=== PATIENT | female | born 1985 | race Caucasian/White ===

== ENCOUNTER 2018-06-22 13:03 | Emergency (ER) | payer OTHER ==
--- NOTE | 2018-06-22 13:13 | EDPHY ---
H & P Stated Complaint: midsternal cp since th Time Seen by Provider: 06/22/18 13:13 HPI/ROS: CHIEF COMPLAINT: Chest pain HISTORY OF PRESENT ILLNESS: This is a healthy 33-year-old female who presents with 3 days of intermittent substernal chest pain. She woke 2 days ago with chest pain in the mid to high substernal area. She describes this as a pressure. She also had developed a subconjunctival hemorrhage in her right eye. She saw her eye doctor concerning the subconjunctival hemorrhage. The chest pain resolved without treatment. The following day, yesterday, she had some chest pain in the morning that went away as the day progressed. She thought that she was fine overall. However, today the chest pain has returned. She does not feel short of breath and it does not hurt to breathe. She has not had cough or fever. No chest trauma. She denies nausea or vomiting. She does report that she has had some left facial tingling or numbness. It involved the area around her left eye and is present at the time of my interview. She also has a feeling of tingling that extends into her left neck and arm. She noticed some aching in her right leg yesterday, none today, and she does not describe this as numbness. She has had no weakness. She denies headache. Father had a heart attack at age 67. REVIEW OF SYSTEMS: A ten system review of systems was performed and is negative with the exception of the items mentioned in the HPI. She has intermittent low back pain, not a problem currently. She did experience some low posterior neck pain about a month ago and underwent an MRI of her neck. She was told at that time that she did not have any disc disease and that"something was aggravating her nervous System". She does not believe that this was a description of an MRI finding but the MRI was done outside of our system. No report available to me. Past medical history: Negative with the exception of a remote diagnosis of ulcer disease. No endoscopy was ever performed. She states that this was related to medication she was taking. She has not had any midepigastric or abdominal pain recently. Past surgical history: Negative. Family history: Father with MS at age 67. Grandfather with pancreatic cancer. Mother with a brain stem tumor for which she underwent unknown treatments. The tumor is reportedly gone. 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 She is with a 2-year- old daughter. No tobacco use. General Appearance: Alert. Vital signs reviewed and normal. Eyes: Pupils equal and round, no conjunctival injection, no discharge. Anicteric. ENT, Mouth: Mucous membranes are moist, no oropharyngeal erythema or edema. Neck: No lymphadenopathy, supple. Respiratory: Lungs are clear to auscultation; no wheezes, rales, or rhonchi. Cardiovascular: Regular rate and rhythm; no murmur, rub, or gallop. Gastrointestinal: Abdomen is soft and nontender, no masses or organomegaly, bowel sounds normal. Skin: Warm and dry, no rashes on exposed skin, normal color. Back: Nontender to palpation over the thoracolumbar spine. No CVAT. Extremities: No lower extremity edema, no calf tenderness or swelling. Neurological: Alert and oriented. Moving all four extremities easily and equally. Cranial nerves 2-12 were examined and are intact with the exception of decreased light touch over the left forehead. Visual acuity not tested. Strength 5/5 with testing of all major motor groups in the upper and lower extremities. Sensation is mildly decreased to light touch over the left upper arm in all dermatomes with normal sensation distal to the wrist. Deep tendon reflexes are 2+ in the biceps, triceps, and knees. No clonus. Psychiatric: Normal affect. - Personal History LMP (Females 10-55): 8-14 Days Ago Current Tetanus Diphtheria and Acellular Pertussis (TDAP): Yes - Medical/Surgical History Hx Asthma: No Hx Chronic Respiratory Disease: No Hx Diabetes: No Hx Cardiac Disease: No Hx Renal Disease: No Hx Cirrhosis: No Hx Alcoholism: No Hx HIV/AIDS: No Hx Splenectomy or Spleen Trauma: No Other PMH: denies - Social History Smoking Status: Never smoked Constitutional: Initial Vital Signs Temperature (C) 37 C 06/22/18 13:05 Heart Rate 65 06/22/18 13:05 Respiratory Rate 17 06/22/18 13:05 Blood Pressure 103/66 06/22/18 13:05 O2 Sat (%) 99 06/22/18 13:05 O2 Delivery Mode Room Air Allergies/Adverse Reactions: No Known Allergies Allergy (Verified 06/23/18 16:45) Home Medications: Medication Instructions Recorded Bcp 06/22/18 Nexium 06/23/18 Medical Decision Making - Diagnostics EKG Interpretation: 12 lead EKG is interpreted in [place] by emergency department physician. ED Course/Re-evaluation: This patient was serially examined while she was in the emergency department. Within an hour after her arrival her chest pain had resolved, as had the facial numbness and arm numbness that she had been experiencing. Neither one returned during her stay in the department. Her EKG is without ischemic changes. It shows a sinus rhythm with a rate of 65. Acute coronary syndrome seems unlikely, given her age and lack of risk factors. Initial troponin is normal. I discussed the use of the HEART score with the patient and her . She has a heart score of 0 putting her at low risk for a major acute coronary event within the next 6 weeks. Her risk is less than 2% MACE within 6 weeks. We discussed whether not to proceed with a 2nd troponin and 2nd EKG and she has chosen to forego additional testing. Both she and her were involved in this decision making. She understands that an acute coronary cyst syndrome has not been entirely ruled out. A D-dimer was performed and was for a mildly elevated at 0.52. She has started a new hormonal control pill. We discussed whether not proceed with CT angiogram of the chest and she would like to have this test done. CT angiogram of the chest was performed and is negative for PE. At the time of the procedure there was extravasation of contrast into her left upper arm. Arm was elevated and an ice pack was applied. She is given written and verbal instructions concerning how to care for this site of extravasation. I am recommending that she return within 24 hr if she is not better, sooner if she is worse in any way. It is my perception that her greater concern is the numbness that she was experiencing. This has resolved entirely. Her neurologic exam is normal at the time of my repeat evaluation. I do not feel that emergent brain imaging is needed at this time. We reviewed some of the diagnostic possibilities-- including multiple sclerosis. She is not experiencing headache and I do not think that this was a migraine phenomena. She has not had head trauma. She has not had neck pain and I do not suspect vertebral dissection. She has not been ill and sinus thrombosis seems unlikely. She has no evidence of Hdz's palsy on exam. She does not have a primary care provider and she has been referred to the PCP lathe operator contact lens. She is also given a referral to Cardiology and Neurology. - Data Points Laboratory Results: Laboratory Results 06/22/18 13:15 06/22/18 13:15 Medications Given: Discontinued Medications Acetaminophen (Tylenol) 650 mg PO EDNOW ONE Stop: 06/22/18 16:27 Last Admin: 06/22/18 16:33 Dose: 650 mg Aspirin (Aspirin) 324 mg PO EDNOW ONE Stop: 06/22/18 13:44 Last Admin: 06/22/18 13:51 Dose: 324 mg Point of Care Test Results: Chemistry 06/22/18 13:57 POC Troponin I 0.01 ng/mL ng/mL (0.00-0.08) Departure - Departure Disposition: Home, Routine, Self-Care Clinical Impression: Left facial numbness Chest pain Qualifiers: Chest pain type: unspecified Qualified Code(s): R07.9 - Chest pain, unspecified Condition: Good Instructions: Chest Pain (ED), Paresthesia (ED) Additional Instructions: Reviewed the instructions concerning the extravasation of the IV contrast material. If you are not getting better please return for reexamination in 24 hr. If you are getting worse, return sooner. As we discussed, I have not found any evidence of a problem with your heart. I do recommend that you try taking Nexium again. I am referring you to a terminologist, should you need 1. I am also recommending a primary care physician (Dr. Cunningham) and a neurologist (Dr. Bernal). If you have a return of numbness, any new weakness, headache, visual changes, any new or concerning symptoms please return for re-evaluation. Referrals: Sandy Cunningham MD [[facility] Primary Care Provider] - As per Instructions Miguel Angel Bernal DO [Doctor of Osteopathy] - As per Instructions Jax Shah MD [Medical Doctor] - As per Instructions
[2018-06-22] MEDS ORDERED: ASPIRIN 81 MG CHEWABLE TAB PO ONE (13:43)
[2018-06-22 13:51] LABS: PLATELET COUNT 236 10^3/uL (150-400)
[2018-06-22] MEDS ORDERED: IOPAMIDOL (ISOVUE 370) 100 ML BTL IV ONE ×2 (14:35→15:10)
--- NOTE | 2018-06-22 14:41 | CPEKG ---
Test Reason : OPEN Blood Pressure : / mmHG Vent. Rate : 065 BPM Atrial Rate : 065 BPM P-R Int : 102 ms QRS Dur : 090 ms QT Int : 410 ms P-R-T Axes : 055 074 050 degrees QTc Int : 427 ms Sinus rhythm Short WI interval Confirmed by Herbert Moreira ([id number]) on 06/22/2018 2:41:17 PM Referred By: Confirmed By:Herbert Moreira
[2018-06-22] MEDS ORDERED: ACETAMINOPHEN 325 MG TAB PO ONE (16:26)
[2018-06-22 16:46] VITALS: BP 102/63
== END 2018-06-22 16:46 | disposition home or self-care (01) ==
DX: R07.9 Chest pain, unspecified (principal); R20.0 Anesthesia of skin
CPT/HCPCS: 84484-PO; Q9967

== ENCOUNTER 2018-06-23 16:41 | Emergency (ER) | payer OTHER ==
--- NOTE | 2018-06-23 17:15 | EDPHY ---
H & P Smoking Status: Never smoked Time Seen by Provider: 06/23/18 17:02 HPI/ROS: CHIEF COMPLAINT: Left-sided chest pain HISTORY OF PRESENT ILLNESS: Patient is a 33-year-old female with no significant past medical history here with 1 day of left-sided sharp pleuritic chest pain. She was seen here in the emergency room yesterday by Dr. Lopez who ordered EKG, troponin, CT a all of which were negative for acute cardiopulmonary process including no evidence of pulmonary embolism or aortic dissection or infiltrate. States that yesterday she only felt chest pressure and had paresthesias to the left side of her face and arm but then this morning has developed significant left-sided pleuritic pain. She has tried no medication to alleviate her symptoms other than Nexium which she took just prior to arrival. She does have a history of gastric ulcers. Pain is worse when she leans on the left side. She denies any hemoptysis, fever, chills, history of DVT or PE. She takes no or estrogen. REVIEW OF SYSTEMS: Constitutional: No fever, no chills. Eyes: No discharge. ENT: No sore throat. Cardiovascular: + chest pain, no palpitations. Respiratory: No cough, no shortness of breath. Gastrointestinal: No abdominal pain, no vomiting. Genitourinary: No hematuria. Musculoskeletal: No back pain. Skin: No rashes. Neurological: No headache. (Jose Angel Guillaume) Physical Exam: General Appearance: Alert and no distress. Eyes: Pupils equal and round no injection. Respiratory: Chest is tender to the left chest wall, lungs are clear to auscultation. Cardiac: regular rate and rhythm. Gastrointestinal: Abdomen is soft and nontender, no masses, bowel sounds normal. Musculoskeletal: Neck is supple and nontender. Extremities have full range of motion and are nontender. Skin: No rashes or lesions. (Jose Angel Guillaume) Constitutional: Initial Vital Signs Temperature (C) 37.1 C 06/23/18 16:46 Heart Rate 62 06/23/18 16:46 Respiratory Rate 17 06/23/18 16:46 Blood Pressure 109/73 06/23/18 16:46 O2 Sat (%) 97 06/23/18 16:46 O2 Delivery Mode Room Air Allergies/Adverse Reactions: No Known Allergies Allergy (Verified 06/23/18 16:45) Home Medications: Medication Instructions Recorded Bcp 06/22/18 Nexium 06/23/18 Medical Decision Making - Diagnostics Imaging Results: Imaging Impressions Chest X-Ray 06/23/18 17:12 Impression: Negative frontal chest radiograph. Results called and discussed with Jose Angel TOSCANO on 06/23/2018 at 17:51. Procedures: 33-year-old female here with approximately 2 days of left-sided chest pain that is pleuritic and sharp. She had CT angiogram of the chest which revealed no abnormalities of the thoracic aorta or any evidence of pulmonary embolism or infiltrate. Today she has and negative chest x-ray is not hypoxic EKG reveals no evidence of pericarditis, arrhythmia or ACS. Her troponin is negative for ACS. Additionally expanded the differential and checked a lipase and total bilirubin AST and ALT which were all normal. She did not respond to a GI cocktail so was given a dose of Toradol the assumption this is likely pleurisy. She agrees with the plan to try anti-inflammatories in the follow-up as previously discussed yesterday with Cardiology and Neurology for her symptoms. (Jose Angel Guillaume) Other Provider: PHYSICIAN DOCUMENTATION: The patient was evaluated and managed by the Physician Well Driller. My co- signature indicates that I have reviewed this chart and I agree with the findings and plan of care as documented. I am the secondary supervising physician. (Herbert Moreira) - Data Points Laboratory Results: Laboratory Results 06/23/18 17:45 06/23/18 17:45 06/23/18 06/23/18 06/23/18 17:45 17:45 17:37 WBC 10.53 10^3/uL H 10^3/uL (3.80-9.50) RBC 4.38 10^6/uL 10^6/uL (4.18-5.33) Hgb 13.6 g/dL g/dL (12.6-16.3) Hct 38.6 % % (38.0-47.0) MCV 88.1 fL fL (81.5-99.8) MCH 31.1 pg pg (27.9-34.1) MCHC 35.2 g/dL g/dL (32.4-36.7) RDW 12.5 % % (11.5-15.2) Plt Count 218 10^3/uL 10^3/uL (150-400) MPV 10.5 fL fL (8.7-11.7) Neut % (Auto) 52.1 % % (39.3-74.2) Lymph % (Auto) 37.4 % % (15.0-45.0) [place] % (Auto) 5.3 % % (4.5-13.0) Eos % (Auto) 4.9 % % (0.6-7.6) Baso % (Auto) 0.1 % L % (0.3-1.7) Nucleat RBC Rel Count 0.0 % % (0.0-0.2) Absolute Neuts (auto) 5.48 10^3/uL 10^3/uL (1.70-6.50) Absolute Lymphs (auto) 3.94 10^3/uL H 10^3/uL (1.00-3.00) Absolute Monos (auto) 0.56 10^3/uL 10^3/uL (0.30-0.80) Absolute Eos (auto) 0.52 10^3/uL H 10^3/uL (0.03-0.40) Absolute Basos (auto) 0.01 10^3/uL L 10^3/uL (0.02-0.10) Absolute Nucleated RBC 0.00 10^3/uL 10^3/uL (0-0.01) Immature Gran % 0.2 % % (0.0-1.1) Immature Gran # 0.02 10^3/uL 10^3/uL (0.00-0.10) Sodium 141 mEq/L mEq/L (135-145) Potassium 3.7 mEq/L mEq/L (3.3-5.0) Chloride 106 mEq/L mEq/L (97-110) Carbon Dioxide 23 mEq/l mEq/l (22-31) Anion Gap 12 mEq/L mEq/L (8-16) BUN 15 mg/dL mg/dL (7-23) Creatinine 0.6 mg/dL mg/dL (0.6-1.0) Estimated GFR > 60 Glucose 94 mg/dL mg/dL (70-100) Calcium 9.1 mg/dL mg/dL (8.5-10.4) Total Bilirubin 0.4 mg/dL mg/dL (0.1-1.4) AST 22 IU/L IU/L (14-46) ALT 28 IU/L IU/L (9-52) Alkaline Phosphatase 51 IU/L IU/L (38-126) POC Troponin I 0.00 ng/mL ng/mL (0.00-0.08) Total Protein 7.0 g/dL g/dL (6.3-8.2) Albumin 4.0 g/dL g/dL (3.5-5.0) Lipase 41 IU/L IU/L (23-300) Medications Given: Discontinued Medications Al Hydroxide/Mg Hydroxide (Maalox Susp) 30 ml PO EDNOW ONE Stop: 06/23/18 18:09 Last Admin: 06/23/18 18:51 Dose: 30 ml Aspirin (Aspirin) 324 mg PO EDNOW ONE Stop: 06/23/18 17:34 Last Admin: 06/23/18 17:45 Dose: 324 mg Ketorolac Tromethamine (Toradol) 15 mg IVP EDNOW ONE Stop: 06/23/18 19:02 Last Admin: 06/23/18 19:04 Dose: 15 mg Lidocaine (Lidocaine 2% Viscous) 5 ml PO EDNOW ONE Stop: 06/23/18 18:09 Last Admin: 06/23/18 18:51 Dose: 15 ml Point of Care Test Results: Chemistry 06/23/18 17:37 POC Troponin I 0.00 ng/mL ng/mL (0.00-0.08) Departure - Departure Disposition: Home, Routine, Self-Care Clinical Impression: Pleurisy, Chest pain Condition: Good Instructions: Pleurisy (ED) Additional Instructions: The source of you're chest pain is not clear. This is likely pleurisy. Will treat 2 with 1 shot of Toradol here today which the anti-inflammatory. Unlikely to take 600 mg of Motrin 3 times a day for the next 5 days. Return to the ER for worsening symptoms. Please follow up with Cardiology and Neurology as discussed with Dr. Lopez yesterday. Referrals: NONE *PRIMARY CARE P,. [Primary Care Provider] - As per Instructions Rashid Phillips DO [Doctor of Osteopathy] - As per Instructions
[2018-06-23] MEDS: ASPIRIN 81 MG CHEWABLE TAB PO ONE (17:45)
[2018-06-23 17:53] LABS: PLATELET COUNT 218 10^3/uL (150-400)
[2018-06-23] MEDS: MAG HYDROX/AL HYDROX/SIMETH 30 ML UDCUP PO ONE (18:51)
[2018-06-23] MEDS: LIDOCAINE 2% VISCOUS 15 ML UDCUP PO ONE (18:51)
[2018-06-23] MEDS ORDERED: KETOROLAC 15 MG/1 ML SDV ONE (19:01)
[2018-06-23] MEDS: KETOROLAC 15 MG/1 ML SDV IVP ONE (19:04)
[2018-06-23 19:08] VITALS: BP 102/61
--- NOTE | 2018-06-23 20:52 | CPEKG ---
Test Reason : OPEN Blood Pressure : / mmHG Vent. Rate : 067 BPM Atrial Rate : 066 BPM P-R Int : 110 ms QRS Dur : 082 ms QT Int : 400 ms P-R-T Axes : 048 070 052 degrees QTc Int : 423 ms Sinus rhythm Confirmed by Herbert Moreira ([id number]) on 06/23/2018 8:51:54 PM Referred By: Confirmed By:Herbert Moreira
== END 2018-06-23 19:27 | disposition home or self-care (01) ==
DX: R09.1 Pleurisy (principal)
CPT/HCPCS: 84484-PO; 96374; J1885

== ENCOUNTER → 2018-07-23 | Outpatient (CLI) | payer OTHER ==
[~2018-07-23] MED LIST: GADOBUTROL 10 ML VIAL IVP ONE
== END ==
LOC: FIMAGING 15:24
PROVIDERS: ATTEND Psychiatry & Neurology Neurology
DX: R20.2 Paresthesia of skin (principal)
CPT/HCPCS: A9585

== ENCOUNTER 2018-12-31 19:48 | Emergency (ER) | payer BC, OTHER ==
--- NOTE | 2018-12-31 20:09 | EDPHY ---
H & P Time Seen by Provider: 12/31/18 20:00 HPI/ROS: Chief complaint. Migraine nerve pain HPI. Patient is a 33 year old female presents with complaint of nerve pain all over. She had a headache earlier this week. She has had numbness and tingling. She had some blurry vision right eye today she has had body pain today and muscle spasms. She saw the neurologist Dr. Zhu today who felt that this was atypical migraine and put the patient on prednisone. She took 60 mg prednisone prior to coming. However the neurologist told her that her symptoms would be better within about 2 hr of starting the prednisone and her symptoms have continued so she came to the emergency department. No chest pain or shortness of breath. No abdominal pain. She did take ibuprofen prior to arrival. She has had some today. No fever. Patient had a normal brain MRI July 2018. She has had no fever ROS 10 systems were reviewed and negative with the exception of the elements mentioned in the history of present illness Past Medical/Surgical History: Migraines, GERD Social History: , nonsmoker, no alcohol Smoking Status: Never smoked Physical Exam: General Appearance: Alert pleasant well-developed female mild distress vital signs are stable Eyes: Pupils equal and round no pallor or injection. ENT, Mouth: Mucous membranes are moist. Respiratory: There are no retractions, lungs are clear to auscultation. Cardiovascular: Regular rate and rhythm. Gastrointestinal: Abdomen is soft and nontender, no masses, bowel sounds normal. Neurological: Awake and alert, sensory and motor exams grossly normal. Speech is normal. Cranial nerves intact. There is no pronator drift. [id number] is intact bilaterally Skin: Warm and dry, no rashes. Musculoskeletal: Neck is supple nontender. Extremities symmetrical, full range of motion. Psychiatric: Patient is oriented X 3, there is no agitation. Constitutional: Initial Vital Signs Temperature (C) 36.7 C 12/31/18 20:01 Heart Rate 72 12/31/18 20:01 Respiratory Rate 16 12/31/18 20:01 Blood Pressure 107/71 12/31/18 20:01 O2 Sat (%) 95 12/31/18 20:01 O2 Delivery Mode Room Air Allergies/Adverse Reactions: No Known Allergies Allergy (Verified 12/31/18 19:59) Home Medications: Medication Instructions Recorded Prednisone 12/31/18 Medical Decision Making Procedures: IV normal saline. Reglan, Benadryl, Ativan IV ED Course/Re-evaluation: Re-evaluation 9:20 p.m. Patient is sleeping comfortably. Re-evaluation again at 10:00 p.m.. Patient is awake alert, conversational, neurologically intact. She tells me she feels so much better and is comfortable going home. Differential Diagnosis: Apparent atypical migraine as diagnosed by her neurologist today. Resolution of symptoms with migraine cocktail. Elevated white blood cell count I think likely due to prednisone. She has had no fever. - Data Points Laboratory Results: Laboratory Results 12/31/18 20:35 12/31/18 20:35 12/31/18 12/31/18 12/31/18 20:35 20:35 20:35 WBC 18.25 10^3/uL H 10^3/uL (3.80-9.50) RBC 5.01 10^6/uL 10^6/uL (4.18-5.33) Hgb 15.4 g/dL g/dL (12.6-16.3) Hct 44.8 % % (38.0-47.0) MCV 89.4 fL fL (81.5-99.8) MCH 30.7 pg pg (27.9-34.1) MCHC 34.4 g/dL g/dL (32.4-36.7) RDW 12.6 % % (11.5-15.2) Plt Count 255 10^3/uL 10^3/uL (150-400) MPV 10.3 fL fL (8.7-11.7) Neut % (Auto) 92.1 % H % (39.3-74.2) Lymph % (Auto) 6.6 % L % (15.0-45.0) [place] % (Auto) 0.7 % L % (4.5-13.0) Eos % (Auto) 0.1 % L % (0.6-7.6) Baso % (Auto) 0.1 % L % (0.3-1.7) Nucleat RBC Rel Count 0.0 % % (0.0-0.2) Absolute Neuts (auto) 16.81 10^3/uL H 10^3/uL (1.70-6.50) Absolute Lymphs (auto) 1.20 10^3/uL 10^3/uL (1.00-3.00) Absolute Monos (auto) 0.13 10^3/uL L 10^3/uL (0.30-0.80) Absolute Eos (auto) 0.02 10^3/uL L 10^3/uL (0.03-0.40) Absolute Basos (auto) 0.02 10^3/uL 10^3/uL (0.02-0.10) Absolute Nucleated RBC 0.00 10^3/uL 10^3/uL (0-0.01) Immature Gran % 0.4 % % (0.0-1.1) Immature Gran # 0.07 10^3/uL 10^3/uL (0.00-0.10) Sodium 138 mEq/L mEq/L (135-145) Potassium 4.5 mEq/L mEq/L (3.5-5.2) Chloride 103 mEq/L mEq/L (97-110) Carbon Dioxide 24 mEq/l mEq/l (22-31) Anion Gap 11 mEq/L mEq/L (6-14) BUN 14 mg/dL mg/dL (7-23) Creatinine 0.7 mg/dL mg/dL (0.6-1.0) Estimated GFR > 60 Glucose 119 mg/dL H mg/dL (70-100) Calcium 10.0 mg/dL mg/dL (8.5-10.4) Beta HCG, Qual NEGATIVE Medications Given: Discontinued Medications Diphenhydramine HCl (Benadryl Injection) 12.5 mg IVP EDNOW ONE Stop: 12/31/18 20:21 Last Admin: 12/31/18 20:43 Dose: 12.5 mg Sodium Chloride (Ns) 1,000 mls @ 0 mls/hr IV ONCE ONE; Wide Open PRN Reason: Protocol Stop: 12/31/18 20:21 Last Admin: 12/31/18 20:37 Dose: 1,000 mls Lorazepam (Ativan Injection) 0.5 mg IVP EDNOW ONE Stop: 12/31/18 20:22 Last Admin: 12/31/18 20:40 Dose: 0.5 mg Metoclopramide HCl (Reglan Injection) 10 mg IVP EDNOW ONE Stop: 12/31/18 20:21 Last Admin: 12/31/18 20:39 Dose: 10 mg Departure - Departure Disposition: Home, Routine, Self-Care Clinical Impression: Migraine Qualifiers: Migraine type: other Status migrainosus presence: with status migrainosus Intractability: not intractable Qualified Code(s): G43.801 - Other migraine, not intractable, with status migrainosus Condition: Good Instructions: Migraine Headache (ED) Additional Instructions: Return tonight for worsening symptoms Follow-up and call Dr. Andrade tomorrow for re-evaluation. Referrals: Danyel Dave DO [Primary Care Provider] - As per Instructions Jose Angel Andrade DO [Medical Doctor] - 1 day without fail
[2018-12-31] MEDS ORDERED: NS 1,000 ML IV ONE (20:20)
[2018-12-31] MEDS ORDERED: METOCLOPRAMIDE 10 MG/2 ML VIAL IVP ONE (20:20)
[2018-12-31] MEDS ORDERED: LORazepam 2 MG/ML INJ IVP ONE (20:21)
[2018-12-31 20:52] LABS: PLATELET COUNT 255 10^3/uL (150-400)
[2018-12-31 21:51] VITALS: BP 95/60
[2018-12-31] MEDS ORDERED: BUPIVACAINE 0.5% 30 ML SDV ONE (22:54)
== END 2018-12-31 22:13 | disposition home or self-care (01) ==
DX: G43.801 Other migraine, not intractable, with status migrainosus (principal); E86.9 Volume depletion, unspecified; D72.829 Elevated white blood cell count, unspecified; K21.9 Gastro-esophageal reflux disease without esophagitis
CPT/HCPCS: 96374; J1200; J2060; J2765